=== PATIENT | male | born 1980 ===

== ENCOUNTER 2016-10-11 19:00 | Observation (INO) | payer OTHER ==
[2016-10-11] MEDS ORDERED: Sodium Chloride 0.9% 1,000 ML IV STA (19:41)
[2016-10-11] MEDS ORDERED: DiphenhydrAMINE 50 mg/ml Inj IVP STA (19:41)
--- NOTE | 2016-10-11 20:12 | ED PDOC ---
HPI: General Adult Time Seen by Provider: 10/11/16 19:32 Chief Complaint (Nursing): Fever Chief Complaint (Provider): Fever/Cough/Headache/Rash History Per: Patient History/Exam Limitations: no limitations Onset/Duration Of Symptoms: Days (x3) Additional Complaint(s): 19:32 Patric Sheriff is a 36 year old male that presents to the ED with a chief complaint of a cough, fever, headache, and rash that he has been experiencing since Tuesday. Patient states that the rash first began on his legs and spread to his arms and stomach, and that it is itchy. He reports that he went to his PMD today at [facility] where he was told that he may have hepatitis, though he does not complain of any abdominal pain. patient denies any sick contacts or recent travel, and states that the only medication he takes at home is Tylenol on occasion. Past Medical History Reviewed: Historical Data, Nursing Documentation, Vital Signs Vital Signs: Last Vital Signs Temp 101 F H 10/12/16 00:58 Pulse 42 L 10/11/16 19:21 Resp 20 10/11/16 19:21 BP 132/71 10/11/16 19:21 Pulse Ox 99 10/11/16 20:19 - Family History Family History: States: Unknown Family Hx - Allergies Allergies/Adverse Reactions: Allergies Allergy/AdvReac Type Severity Reaction Status Date / Time No Known Allergies Allergy Verified 10/11/16 19:20 Review of Systems Constitutional: Positive for: Fever Respiratory: Positive for: Cough Skin: Positive for: Rash (itchy) Neurological: Positive for: Headache Physical Exam - Reviewed Nursing Documentation Reviewed: Yes Vital Signs Reviewed: Yes - Physical Exam Appears: Positive for: Non-toxic, No Acute Distress Head Exam: Positive for: ATRAUMATIC, NORMOCEPHALIC (papular erythematous blanching rash present on bilateral extremities, stomach, and back) Skin: Positive for: Normal Color, Rash (papular erythematous blanching rash on bilateral extremities, stomach, and back) ENT: Positive for: Normal ENT Inspection. Negative for: Other (no papules around the mouth, no oropharyngeal involvement) Cardiovascular/Chest: Positive for: Regular Rate, Rhythm. Negative for: Murmur Respiratory: Positive for: Normal Breath Sounds. Negative for: Wheezing Gastrointestinal/Abdominal: Positive for: Soft. Negative for: Tenderness Neurologic/Psych: Positive for: Alert, Oriented - Laboratory Results Result Diagrams: 10/11/16 20:25 10/11/16 20:25 - ECG O2 Sat by Pulse Oximetry: 99 (RA) Pulse Ox Interpretation: Normal Medical Decision Making Medical Decision Makin:40 Initial Impression: Viral Illness Initial Plan: * CMP * CBC * Urinalysis * Urine Drug Screen * Lipase * Hepatitis Panel * Jonnie-Regalado Virus Panel * Chest X-Ray * Benadryl 50 mg IVP * Sodium Chloride 1000 mL IV at 500 mLs/hr * Flu Swab * Reevaluation 1:00 Pt. still with fever despite antipyretic. New diagnosis of diabetes, abnormal LFT's. Pt w/o primary care or insurance, will admit for further workup. Scribe Attestation: Documented by Claudia Dhillon, acting as a scribe for Brett Ordaz MD. Provider Scribe Attestation: All medical record entries made by the Scribe were at my direction and personally dictated by me. I have reviewed the chart and agree that the record accurately reflects my personal performance of the history, physical exam, medical decision making, and the department course for this patient. I have also personally directed, reviewed, and agree with the discharge instructions and disposition. Disposition - Clinical Impression Clinical Impression: Fever in adult, Diabetes mellitus - Disposition Disposition Time: 01:00 Condition: STABLE
[2016-10-11 20:29] LABS: BASO # 0.1 K/uL (0.0-0.2); BASO % 0.9 % (0.0-2.0); EOS # 0.1 K/uL (0.0-0.7); EOS % 0.7 % (0.0-4.0); HEMATOCRIT 41.4 % (35.0-51.0); LYMPH # 0.8 K/uL (1.0-4.3); LYMPH % 8.6 % (20.0-40.0); MEAN CELL VOLUME 82.4 fl (80.0-94.0); MEAN CORPUSCULAR HEMOGLOBIN 28.1 pg (27.0-31.0); MEAN CORPUSCULAR HGB CONC 34.2 g/dL (33.0-37.0); MEAN PLATELET VOLUME 8.9 fl (7.2-11.7); MONO # 0.5 K/uL (0.0-0.8); MONO % 6.2 % (0.0-10.0); NEUT # 7.3 K/uL (1.8-7.0); NEUT % 83.6 % (50.0-75.0); NRBC % 0.1 % (0.0-0.0); PLATELET COUNT 184 K/uL (130-400); RED CELL DISTRIBUTION WIDTH 12.9 % (11.5-14.5); WHITE BLOOD COUNT 8.7 K/uL (4.8-10.8)
[2016-10-11 20:49] LABS: ALKALINE PHOSPHATASE 130 U/L (38-126); ALT/SGPT 192 U/L (21-72); AST/SGOT 232 U/L (17-59); BILIRUBIN,TOTAL 1.4 mg/dl (0.2-1.3); BLOOD UREA NITROGEN 12 mg/dl (9-20); CALCIUM 8.9 mg/dL (8.4-10.2); CARBON DIOXIDE 19 mmol/L (22-30); CHLORIDE 97 mmol/L (98-107); GFR AFRICAN-AMERICAN > 60; GLUCOSE,RANDOM 371 mg/dL (75-110); LIPASE 255 U/L (23-300); POTASSIUM 3.9 MMOL/L (3.6-5.0); SODIUM 132 mmol/l (132-148); TOTAL PROTEIN 7.4 G/DL (6.3-8.2)
[2016-10-11 21:01] LABS: NEUTROPHIL 81 % (42-75); TOTAL CELLS COUNTED 100
--- NOTE | 2016-10-11 23:12 | US ---
EXAM: US Abdomen Limited, Right Upper Quadrant CLINICAL HISTORY: 36 years old, male; Pain and abnormal findings; Abnormal lab test; Elevated liver enzymes; Abdominal pain; Epigastric; Additional info: Fever, abnl lfts TECHNIQUE: Real-time ultrasound of the right upper quadrant with image documentation. EXAM DATE/TIME: 10/11/2016 9:24 PM COMPARISON: No relevant prior studies available. FINDINGS: Gallbladder: Appears mildly contracted. Otherwise within normal limits in appearance, without evidence of gallstones, significant gallbladder wall thickening, or pericholecystic fluid. Reportedly negative sonographic Pool's sign. Common bile duct: Does not appear abnormally dilated, measuring less than 6 mm in diameter. Liver: Demonstrates diffusely increased parenchymal echogenicity, most compatible with fatty infiltration. Enlarged, measuring 19 cm in length. Normal flow seen in the main portal vein on color and Doppler imaging. Pancreas: Incompletely seen due to gas. Visualized portions of the pancreatic head and neck appear grossly normal. Right kidney: Within normal limits in appearance. Measures 12.9 cm in length. No evidence of hydronephrosis. IMPRESSION: No evidence of acute cholecystitis or other significant acute abnormality. Enlarged, fatty liver. See above for remaining findings.
[2016-10-11 23:33] LABS: RBC URINE 1 /hpf (0-3); URINE BACTERIA RARE (<OCC); URINE BILIRUBIN NEGATIVE (NEGATIVE); URINE BLOOD NEGATIVE (NEGATIVE); URINE COLOR YELLOW (YELLOW); URINE GLUCOSE (UA) >=500 mg/dL (Normal); URINE KETONE 80 mg/dL (NEGATIVE); URINE LEUKOCYTE ESTERASE NEG Leu/uL (Negative); URINE PROTEIN 30 mg/dL (NEGATIVE); WBC URINE 10 /hpf (0-5)
--- NOTE | 2016-10-12 01:33 | CP.PCM.HP ---
Present on Admission - Present on Admission Any Indicators Present on Admission: No Past Patient History - Past Social History Smoking Status: Unknown If Ever Smoked - PSYCHIATRIC Hx Substance Use: No - SURGICAL HISTORY Hx Surgeries: No Meds Allergies/Adverse Reactions: Allergies Allergy/AdvReac Type Severity Reaction Status Date / Time No Known Allergies Allergy Verified 10/11/16 19:20 Physical Exam - Constitutional Appears: No Acute Distress - Head Exam Head Exam: ATRAUMATIC, NORMOCEPHALIC - Eye Exam Eye Exam: EOMI, PERRL - ENT Exam ENT Exam: Mucous Membranes Dry - Neck Exam Neck exam: Positive for: Full Rom - Respiratory Exam Respiratory Exam: Clear to Auscultation Bilateral, NORMAL BREATHING PATTERN - Cardiovascular Exam Cardiovascular Exam: REGULAR RHYTHM, +S1, +S2 - GI/Abdominal Exam GI & Abdominal Exam: Normal Bowel Sounds, Soft - Extremities Exam Extremities exam: Positive for: normal inspection - Neurological Exam Neurological exam: Alert, CN II-XII Intact, Oriented x3 - Psychiatric Exam Psychiatric exam: Normal Affect, Normal Mood - Skin Skin Exam: Dry, Warm Results - Vital Signs Recent Vital Signs: Last Vital Signs Temp 101 F H 10/12/16 00:58 Pulse 42 L 10/11/16 19:21 Resp 20 10/11/16 19:21 BP 132/71 10/11/16 19:21 Pulse Ox 99 10/11/16 20:19 - Labs Result Diagrams: 10/11/16 20:25 10/11/16 20:25 Labs: Laboratory Results - last 24 hr 10/11/16 10/11/16 10/11/16 20:25 20:26 21:47 WBC 8.7 RBC 5.03 Hgb 14.2 Hct 41.4 MCV 82.4 MCH 28.1 MCHC 34.2 RDW 12.9 Plt Count 184 MPV 8.9 Neut % (Auto) 83.6 H Lymph % (Auto) 8.6 L [place] % (Auto) 6.2 Eos % (Auto) 0.7 Baso % (Auto) 0.9 Neut # 7.3 H Lymph # 0.8 L [place] # 0.5 Eos # 0.1 Baso # 0.1 Neutrophils % (Manual) 81 H Band Neutrophils % 4 H Lymphocytes % (Manual) 10 L Monocytes % (Manual) 5 Platelet Estimate Normal Sodium 132 Potassium 3.9 Chloride 97 L Carbon Dioxide 19 L Anion Gap 20 BUN 12 Creatinine 0.7 L Est GFR ( Amer) > 60 Est GFR (Non-Af Amer) > 60 Random Glucose 371 H Calcium 8.9 Total Bilirubin 1.4 H AST 232 H ALT 192 H Alkaline Phosphatase 130 H Total Protein 7.4 Albumin 3.7 Globulin 3.6 Albumin/Globulin Ratio 1.0 Lipase 255 Urine Color Yellow Urine Clarity Clear Urine pH 6.0 Ur Specific [place] 1.031 H Urine Protein 30 Urine Glucose (UA) >=500 Urine Ketones 80 Urine Blood Negative Urine Nitrate Negative Urine Bilirubin Negative Urine Urobilinogen 4.0 Ur Leukocyte Esterase Neg Urine RBC (Auto) 1 Urine Microscopic WBC 10 H Ur Squamous Epith Cells 1 Urine Bacteria Rare Urine Opiates Screen Negative Urine Methadone Screen Negative Ur Barbiturates Screen Negative Ur Phencyclidine Scrn Negative Ur Amphetamines Screen Negative U Benzodiazepines Scrn Negative U Oth Cocaine Metabols Negative U Cannabinoids Screen Negative Influenza Typ A,B (EIA) Negative for flu a/b - Imaging and Cardiology US - abdomen Status: Report reviewed by me (no findings other than fatty liver) Chest x-ray Status: Report reviewed by me (No findings) Assessment & Plan (1) Fever Assessment and Plan: 36 y/o male with what appears to be new onset DM2 as well as a fever associated with abnormal LFTs. 1) DM2 which appears to be new onset -A1C in AM -DM2 diet, SSI with accucheck -If patient does not require any tests with CT contrast, may consider metformin in AM 2) Fever -- no clear etiology, although possibilty of hepatitis -f/u EBV, also ordered HIV -f/u BCx -No abx for now 3) DVT PPx -- SQ Lovenox Status: Acute (2) Diabetes mellitus, new onset Status: Acute (3) DVT prophylaxis Status: Acute
[2016-10-12 07:42] LABS: BASO % 0.2 % (0.0-2.0); EOS # 0.1 K/uL (0.0-0.7); EOS % 1.8 % (0.0-4.0); HEMATOCRIT 39.8 % (35.0-51.0); LYMPH # 0.9 K/uL (1.0-4.3); LYMPH % 10.9 % (20.0-40.0); MEAN CELL VOLUME 82.6 fl (80.0-94.0); MEAN CORPUSCULAR HEMOGLOBIN 28.3 pg (27.0-31.0); MEAN CORPUSCULAR HGB CONC 34.3 g/dL (33.0-37.0); MEAN PLATELET VOLUME 9.4 fl (7.2-11.7); MONO # 0.5 K/uL (0.0-0.8); MONO % 6.9 % (0.0-10.0); NEUT # 6.3 K/uL (1.8-7.0); NEUT % 80.2 % (50.0-75.0); NRBC % 0.1 % (0.0-0.0); RED CELL DISTRIBUTION WIDTH 12.8 % (11.5-14.5); WHITE BLOOD COUNT 7.9 K/uL (4.8-10.8)
[2016-10-12 08:13] LABS: ALB/GLOB RATIO 0.9 (1.0-2.1); ALKALINE PHOSPHATASE 114 U/L (38-126); ALT/SGPT 201 U/L (21-72); AST/SGOT 190 U/L (17-59); BILIRUBIN,TOTAL 1.1 mg/dl (0.2-1.3); BLOOD UREA NITROGEN 9 mg/dl (9-20); CALCIUM 8.6 mg/dL (8.4-10.2); CARBON DIOXIDE 21 mmol/L (22-30); CHLORIDE 102 mmol/L (98-107); GFR AFRICAN-AMERICAN > 60; GLUCOSE,RANDOM 294 mg/dL (75-110); POTASSIUM 3.6 MMOL/L (3.6-5.0); SODIUM 139 mmol/l (132-148); TOTAL PROTEIN 6.7 G/DL (6.3-8.2)
[2016-10-12] MEDS ORDERED: Enoxaparin 40 mg Syringe SC SCH (09:00)
[2016-10-12] MEDS: Insulin Regular 100 units/ml SC SCH ×5 (09:21→22:18)
[2016-10-12] MEDS: Sodium Chloride 0.9% 1,000 ML IV SCH ×2 (09:24→12:56)
--- NOTE | 2016-10-12 10:23 | RAD ---
PROCEDURE: CHEST RADIOGRAPH, 1 VIEW HISTORY: r/o PNA COMPARISON: None available. FINDINGS: LUNGS: Clear. PLEURA: No pneumothorax or pleural fluid seen. CARDIOVASCULAR: Normal. OSSEOUS STRUCTURES: No significant abnormalities. VISUALIZED UPPER ABDOMEN: Normal. OTHER FINDINGS: None. IMPRESSION: No active disease. Concordant results with the preliminary interpretation rendered by the emergency department physician procedure.
[2016-10-12 13:47] LABS: EPSTEIN-BARR VCA AB IGG 4.13 (<0.91); EPSTEIN-BARR VCA AB IGM <0.91 (<0.91)
[2016-10-12] MEDS: Insulin NPH Human 100 Units/ml Inj SC SCH ×2 (22:21→22:35)
[2016-10-13] MEDS: Insulin Regular 100 units/ml SC SCH ×6 (06:57→17:44)
[2016-10-13 09:08] LABS: ALB/GLOB RATIO 0.9 (1.0-2.1); BILIRUBIN,TOTAL 0.8 mg/dl (0.2-1.3)
[2016-10-13 13:55] LABS: CYTOMEGALOVIRUS AB (IGG) 1.42 (<0.91)
[2016-10-13 16:05] VITALS: BP 110/65; PULSE 83; RESP 18; TEMP 98.9; O2SAT 97
--- NOTE | 2016-10-13 17:14 | CP.PCM.DIS ---
Provider - Provider Date of Admission: 10/12/16 01:11 Attending physician: Lizbeth Courtney MD Time Spent in preparation of Discharge (in minutes): 45 Diagnosis - Discharge Diagnosis (1) Diabetes mellitus, new onset Status: Acute (2) Fever Status: Acute (3) Rash Status: Acute (4) Abnormal LFTs (liver function tests) Status: Acute Hospital Course - Lab Results Lab Results: Most Recent Lab Values WBC 7.9 K/uL (4.8-10.8) 10/12/16 05:15 RBC 4.82 Mil/uL (4.40-5.90) 10/12/16 05:15 Hgb 13.6 g/dL (12.0-18.0) 10/12/16 05:15 Hct 39.8 % (35.0-51.0) 10/12/16 05:15 MCV 82.6 fl (80.0-94.0) 10/12/16 05:15 MCH 28.3 pg (27.0-31.0) 10/12/16 05:15 MCHC 34.3 g/dL (33.0-37.0) 10/12/16 05:15 RDW 12.8 % (11.5-14.5) 10/12/16 05:15 Plt Count 172 K/uL (130-400) 10/12/16 05:15 MPV 9.4 fl (7.2-11.7) 10/12/16 05:15 Neut % (Auto) 80.2 % (50.0-75.0) H 10/12/16 05:15 Lymph % (Auto) 10.9 % (20.0-40.0) L 10/12/16 05:15 [place] % (Auto) 6.9 % (0.0-10.0) 10/12/16 05:15 Eos % (Auto) 1.8 % (0.0-4.0) 10/12/16 05:15 Baso % (Auto) 0.2 % (0.0-2.0) 10/12/16 05:15 Neut # 6.3 K/uL (1.8-7.0) 10/12/16 05:15 Lymph # 0.9 K/uL (1.0-4.3) L 10/12/16 05:15 [place] # 0.5 K/uL (0.0-0.8) 10/12/16 05:15 Eos # 0.1 K/uL (0.0-0.7) 10/12/16 05:15 Baso # 0.0 K/uL (0.0-0.2) 10/12/16 05:15 Neutrophils % (Manual) 81 % (42-75) H 10/11/16 20:25 Band Neutrophils % 4 % (0-2) H 10/11/16 20:25 Lymphocytes % (Manual) 10 % (20-50) L 10/11/16 20:25 Monocytes % (Manual) 5 % (0-10) 10/11/16 20:25 Platelet Estimate Normal (NORMAL) 10/11/16 20:25 Sodium 139 mmol/l (132-148) 10/12/16 05:15 Potassium 3.6 MMOL/L (3.6-5.0) 10/12/16 05:15 Chloride 102 mmol/L (98-107) 10/12/16 05:15 Carbon Dioxide 21 mmol/L (22-30) L 10/12/16 05:15 Anion Gap 20 (10-20) 10/12/16 05:15 BUN 9 mg/dl (9-20) 10/12/16 05:15 Creatinine 0.6 mg/dL (0.8-1.5) L 10/12/16 05:15 Est GFR ( Amer) > 60 10/12/16 05:15 Est GFR (Non-Af Amer) > 60 10/12/16 05:15 POC Glucose (mg/dL) 259 mg/dL (65-110) H 10/13/16 15:34 Random Glucose 294 mg/dL (75-110) H 10/12/16 05:15 Hemoglobin A1c 12.8 % (4.2-6.5) H 10/12/16 05:15 Calcium 8.6 mg/dL (8.4-10.2) 10/12/16 05:15 Total Bilirubin 0.8 mg/dl (0.2-1.3) 10/13/16 08:53 Direct Bilirubin 0.2 mg/ml (0.0-0.4) 10/13/16 08:53 AST 110 U/L (17-59) H D 10/13/16 08:53 ALT 196 U/L (21-72) H 10/13/16 08:53 Alkaline Phosphatase 124 U/L (38-126) 10/13/16 08:53 Total Protein 7.0 G/DL (6.3-8.2) 10/13/16 08:53 Albumin 3.3 g/dL (3.5-5.0) L 10/13/16 08:53 Globulin 3.7 gm/dL (2.2-3.9) 10/13/16 08:53 Albumin/Globulin Ratio 0.9 (1.0-2.1) L 10/13/16 08:53 Lipase 255 U/L (23-300) 10/11/16 20:25 Urine Color Yellow (YELLOW) 10/11/16 21:47 Urine Clarity Clear (Clear) 10/11/16 21:47 Urine pH 6.0 (5.0-8.0) 10/11/16 21:47 Ur Specific [place] 1.031 (1.003-1.030) H 10/11/16 21:47 Urine Protein 30 mg/dL (NEGATIVE) 10/11/16 21:47 Urine Glucose (UA) >=500 mg/dL (Normal) 10/11/16 21:47 Urine Ketones 80 mg/dL (NEGATIVE) 10/11/16 21:47 Urine Blood Negative (NEGATIVE) 10/11/16 21:47 Urine Nitrate Negative (NEGATIVE) 10/11/16 21:47 Urine Bilirubin Negative (NEGATIVE) 10/11/16 21:47 Urine Urobilinogen 4.0 mg/dL (0.2-1.0) 10/11/16 21:47 Ur Leukocyte Esterase Neg Sara/uL (Negative) 10/11/16 21:47 Urine RBC (Auto) 1 /hpf (0-3) 10/11/16 21:47 Urine Microscopic WBC 10 /hpf (0-5) H 10/11/16 21:47 Ur Squamous Epith Cells 1 /hpf (0-5) 10/11/16 21:47 Urine Bacteria Rare (<OCC) 10/11/16 21:47 Urine Opiates Screen Negative (NEGATIVE) 10/11/16 20:26 Urine Methadone Screen Negative (NEGATIVE) 10/11/16 20:26 Ur Barbiturates Screen Negative (NEGATIVE) 10/11/16 20:26 Ur Phencyclidine Scrn Negative (NEGATIVE) 10/11/16 20:26 Ur Amphetamines Screen Negative (NEGATIVE) 10/11/16 20:26 U Benzodiazepines Scrn Negative (NEGATIVE) 10/11/16 20:26 U Oth Cocaine Metabols Negative (NEGATIVE) 10/11/16 20:26 U Cannabinoids Screen Negative (NEGATIVE) 10/11/16 20:26 CMV IgG Ab 1.42 (<0.91) H 10/12/16 12:33 EBV Capsid Ag IgG Ab 4.13 (<0.91) H 10/11/16 20:25 EBV Capsid Ag IgM Ab <0.91 (<0.91) 10/11/16 20:25 EBV Nuclear Antigen Ab >5.00 (<0.91) H 10/11/16 20:25 EBV Interpretation See note (()) 10/11/16 20:25 Hepatitis A IgM Ab Negative (NEGATIVE) 10/11/16 20:25 Hep Bs Antigen Negative (NEGATIVE) 10/11/16 20:25 Hep B Core IgM Ab Negative (NEGATIVE) 10/11/16 20:25 Hepatitis C Antibody Negative (NEGATIVE) 10/11/16 20:25 HIV-1 Ab Rapid Screen Non reactive (NON REAC) 10/12/16 05:15 Influenza Typ A,B (EIA) Negative for flu a/b (NEGATIVE) 10/11/16 20:26 - Hospital Course Hospital Course: 36 y/o gent came because of fever and rash. Noted to have abnormal LFTs. Abd Sonogram : Hepatomegaly. 1. Fever with Rash and Abn LFTs- unclear etiology , further work up needed probably Infectious Mononucleosis - History started with flu like sxs , some cervical lymphadenopathy followed by fever then the appearance of rash - LFTS elevated on admission however slowly trending down - fever resolved - EBV IgG however IGM negative, CMV IgG + but IgM neg - RPR pending - hepatitis panel negative , HIV negative - pt denies travel, no sick contact in family - Lyme and Rickettsia panel pending - Toxicology screen neg -symptoms improved however need to ff up pending work up at the clinic - need to have LFTs repeated and HIV test repeated 2. Newly Diagnosed DM type II - accucheck - started on Insulin - Endo consulted- discussed with Dr gatica- rec to d/c home on Glipizide 10 mg bid - ff up FP clinic - DM education done by RN 3. Abn LFT - improving - denies intake of ETOH nor drugs - Tox screen neg -not on any meds at home Discharge Exam - Head Exam Head Exam: ATRAUMATIC, NORMOCEPHALIC (papular erythematous blanching rash present on bilateral extremities, stomach, and back) - Eye Exam Eye Exam: EOMI, Normal appearance, PERRL - ENT Exam ENT Exam: Mucous Membranes Moist, Normal External Ear Exam - Neck Exam Neck exam: Full Rom Additional comments: no nuchal rigidity - Respiratory Exam Respiratory Exam: NORMAL BREATHING PATTERN. absent: Respiratory Distress - Cardiovascular Exam Cardiovascular Exam: REGULAR RHYTHM, +S1, +S2 - GI/Abdominal Exam GI & Abdominal Exam: Normal Bowel Sounds, Soft. absent: Tenderness - Extremities Exam Extremities exam: full ROM, normal capillary refill, normal inspection, pedal pulses present - Back Exam Back exam: FULL ROM. absent: CVA tenderness (L), CVA tenderness (R), NORMAL INSPECTION, paraspinal tenderness, vertebral tenderness - Neurological Exam Neurological exam: Alert, CN II-XII Intact, Normal Gait, Oriented x3, Reflexes Normal - Psychiatric Exam Psychiatric exam: Normal Affect, Normal Mood - Skin Skin Exam: Rash Additional comments: erythematous , sl pruritic rash on arms legs and abdomen and back - rash seem to spare the upper chest and face Discharge Plan - Discharge Medications Prescriptions: DiphenhydrAMINE [Benadryl] 50 mg PO Q6 PRN #30 cap PRN Reason: pruritis/rash GlipiZIDE [Glipizide] 10 mg PO BID #60 tab - Follow Up Plan Condition: IMPROVED Disposition: HOME/ ROUTINE Instructions: Diabetes Mellitus Type 2 in Adults (GEN) Additional Instructions: ff up FP clinic in 1 wk ff up Lyme, RPR, Riccketsia result in [facility] needs rpt LFT ( to see if normalized) and rpt HIV test on ff up check glucose at home and bring in readings for adjustment of DM medication Referrals: [facility] [place] [Outside]
--- NOTE | 2016-10-13 17:30 | PN ---
DATE: 10/13/2016 ROOM: 651 SUBJECTIVE: This is a 36-year-old male with recent uncontrolled type 2 insulin-requiring diabetes, n ow being followed closely for metabolic management. The patient at this time also has elevated liver function studies with possible underlying hepatitis of yet to be determined etiology, and is also be ing followed closely for metabolic management. His glycemic levels are fluctuating, but improved, an d the latest chemistry showed a BUN of 9, sodium 139, potassium 3.6, chloride 102, CO2 21, glucose 29 4, and creatinine 0.6. His glucose levels today have ranged from 256 to 259 mg/dL. So, at this time, as he is being scheduled for possible discharge, then would recommend oral hypergly cemic therapy with a combination of glipizide given as 10 mg b.i.d. before meals and metformin at 500 mg b.i.d. after meals. He will be followed with the medical residents in the [facility] f or outpatient diabetic and medical management. We will follow. Rashmi Ware MD cc: [id number] TT: 10/13/2016 17:29:46 Confirmation # [id number] Dictation # [id number] allyn
[2016-10-13 19:45] LABS: CYTOMEGALOVIRUS AB (IGM) <0.2 AI (< OR = 0.8)
[2016-10-14 08:21] LABS: LYME DISEASE SCREEN <0.90 index (())
== END 2016-10-13 18:18 | disposition home or self-care (01) ==
LOC: H.ER 19:00 → H.ERHOLD 10-12 01:11 → H.MEDSURG1 10-12 03:34
PROVIDERS: ADMIT Internal Medicine; ATTEND Internal Medicine
DX: B27.90 Infectious mononucleosis, unspecified without complication (principal); R63.1 Polydipsia; E11.65 Type 2 diabetes mellitus with hyperglycemia; R79.89 Other specified abnormal findings of blood chemistry; R21 Rash and other nonspecific skin eruption